=== PATIENT | male | born 1980 ===

== ENCOUNTER 2018-01-26 17:12 | Emergency (ER) | payer SELFPAY ==
[~2018-01-26] VITALS: Ht 167.6 cm; Wt 86.2 kg
[2018-01-26 18:02] LABS: BASO % 0.2 % (0.0-1.0); HEMATOCRIT 45.9 % (42.0-52.0); LYMPH # 0.6 10*3/uL (1.3-4.4); LYMPH % 4.9 % (27.0-41.0); MEAN CELL VOLUME 86.1 fl (80.0-94.0); MEAN CORPUSCULAR HGB CONC 34.9 g/dl (33.0-37.0); MEAN PLATELET VOLUME 10.9 fl (9.6-12.3); MONO % 7.6 % (3.0-9.0); NEUT # 10.9 10*3/uL (2.3-7.9); NEUT % 86.9 % (47.0-73.0); PLATELET COUNT AUTOMATED 199 10*3/uL (130-400); RED BLOOD COUNT 5.33 10*6/uL (4.50-5.90); RED CELL DISTRI WIDTH 13.1 % (0-14.5); WHITE BLOOD COUNT 12.6 10*3/uL (4.8-10.8)
[2018-01-26 18:16] LABS: ALBUMIN 4.2 gm/dl (3.1-4.5); ALKALINE PHOSPHATASE 88 U/L (45-117); BUN 13 mg/dl (7-24); CHLORIDE 100 mmol/L (98-107); CREATININE 1.07 mg/dL (0.70-1.30); POTASSIUM 3.3 mmol/L (3.5-5.1); SGOT/AST 23 IU/L (3-35); SGPT/ALT 30 U/L (12-78); SODIUM 134 mmol/L (136-145); TOTAL PROTEIN 9.1 gm/dL (6.4-8.2)
[2018-01-26] MEDS ORDERED: TAMIFLU 75MG CA75 MG PO (18:42)
[2018-01-26] MEDS ORDERED: Motrin,Rufen800 MG PO (18:42)
[2018-01-26] MEDS ORDERED: Zofran4 MG PO (18:42)
[2018-01-26] MEDS ORDERED: TYLENOL325 M1 PO (18:42)
== END 2018-01-26 18:41 | disposition home or self-care (01) ==
LOC: ED 17:12
PROVIDERS: Physician Assistant
DX: J10.1 Influenza due to other identified influenza virus with other respiratory manifestations (principal)